=== PATIENT | female | born 1950 | race Two or more races ===

== ENCOUNTER → 2024-12-04 | Outpatient (CLI) | payer MEDICARE, SELFPAY ==
[2024-12-04 08:40] LABS: Basophils # (Auto) 0.1 Thou/mm3 (0.0-0.2); Basophils % (Auto) 1 % (0-2.5); Eosinophils # (Auto) 0.3 Thou/mm3 (0.0-0.5); Eosinophils % (Auto) 6 % (0-10); Hematocrit 32.4 % (36.0-46.0); Hemoglobin 10.6 g/dL (12.0-16.0); Immature Granulocytes % (Auto) 1 % (0-0); Immature Granulocytes Auto 0.04 Thou/mm3 (0.00-0.00); Lymphocytes # (Auto) 0.7 Thou/mm3 (1.0-4.8); Lymphocytes % (Auto) 13 % (10-50); Mean Corpuscular HGB Conc 32.7 g/dl (31.0-37.0); Mean Corpuscular Volume 80 fL (80-100); Monocytes # (Auto) 0.8 Thou/mm3 (0.0-0.8); Monocytes % (Auto) 16 % (0-12); Neutrophils # (Auto) 3.3 Thou/mm3 (1.8-7.7); Neutrophils % (Auto) 64 % (37-80); Nucleated Red Blood Cell % 0 /100 WBC (0); RDW Standard Deviation 43.4 fL (36.4-46.3); Red Blood Count 4.07 Miln/mm3 (4.00-5.20); White Blood Count 5.2 Thou/mm3 (3.6-11.0)
[2024-12-04 08:57] LABS: Alanine Aminotransferase 10 U/L (10-49); Albumin, Serum 3.7 gm/dL (3.4-4.8); Albumin/Globulin Ratio 1.1 (1.2-2.2); Alkaline Phosphatase 100 U/L (46-116); Anion Gap 7 (7-16); Aspartate Amino Transferase 23 U/L (0-34); BUN/Creatinine Ratio 20 Ratio (12-20); Bilirubin,Total 0.5 mg/dL (0.3-1.2); Blood Urea Nitrogen 16 mg/dL (9-23); Calcium 8.6 mg/dL (8.3-10.6); Calcium (Corrected) 8.8 mg/dL (8.5-10.1); Carbon Dioxide 27.6 mMol/L (20.0-31.0); Cardiac Risk Estimate 3.4 RATIO (3.7-5.6); Chloride 106 mMol/L (98-107); Cholesterol 124 mg/dL (132-200); Creatinine (Component) 0.8 mg/dL (0.6-1.3); Globulin 3.4 gm/dL (2.3-3.5); Glucose 92 mg/dL (74-106); HDL Cholesterol 36 mg/dL (40-60); LDL Cholesterol,Calculated 59 mg/dL (0-130); Osmolality,Calculated 282 (275-295); Potassium 3.6 mMol/L (3.4-5.1); Sodium 141 mMol/L (136-145); Thyroid Stimulating Hormone 6.32 uIU/mL (0.55-4.78); Total Protein 7.1 gm/dL (5.7-8.2); Triglycerides 144 mg/dL (30-150); eGFR > 60 See Note
[2024-12-04 09:04] LABS: Platelet Count 42 Thou/mm3 (140-440)
[2024-12-04 11:44] LABS: Slide Review Platelets confirmed
[2024-12-04 12:59] LABS: Path Review Blood Smear Sent to Pathologist
== END | disposition home or self-care (01) ==
PROVIDERS: PCP Family Medicine; Referring Provider Family Medicine; Visit Provider Family Medicine
DX: G25.81 Restless legs syndrome (principal); E78.5 Hyperlipidemia, unspecified
CPT/HCPCS: 36415; 80053; 80061; 84443; 85025

== ENCOUNTER → 2024-12-24 | Outpatient (CLI) | payer MEDICARE, MEDICAID, SELFPAY ==
--- NOTE | 2024-12-24 08:30 | XR_ITS ---
Examination: Screening digital mammography, bilateral Computer aided detection 3-D breast Tomosynthesis, bilateral Date and time of exam: December 24, 2024 0832 hours Compared to mammograms dating to November 26, 2019 Indication: Screening Technique: Nonmagnified MLO, CC views of the breasts to been obtained, reconstructed from 3-D Tomosynthesis images. R2 computer aided detection program utilized for evaluation of suspicious masses and/or abnormal calcifications. 3-D Tomosynthesis images obtained. Findings: Scattered areas of fibroglandular density. Benign calcifications. 6 mm focal asymmetry retroareolar region right breast Impression: BI-RADS Category 0: Incomplete: Need additional imaging evaluation Recommend follow-up spot tomographic views retroareolar region right breast to assess retroareolar right breast focal asymmetry as well as right breast sonography to complete the workup.
[2024-12-24 09:26] LABS: Basophils # (Auto) 0.1 Thou/mm3 (0.0-0.2); Basophils % (Auto) 1 % (0-2.5); Eosinophils # (Auto) 0.3 Thou/mm3 (0.0-0.5); Eosinophils % (Auto) 6 % (0-10); Hematocrit 33.3 % (36.0-46.0); Hemoglobin 10.8 g/dL (12.0-16.0); Immature Granulocytes % (Auto) 1 % (0-0); Immature Granulocytes Auto 0.03 Thou/mm3 (0.00-0.00); Lymphocytes # (Auto) 0.5 Thou/mm3 (1.0-4.8); Lymphocytes % (Auto) 10 % (10-50); Mean Corpuscular HGB Conc 32.4 g/dl (31.0-37.0); Mean Corpuscular Hemoglobin 26.1 pg (25.0-35.0); Mean Corpuscular Volume 80 fL (80-100); Monocytes # (Auto) 0.8 Thou/mm3 (0.0-0.8); Monocytes % (Auto) 17 % (0-12); Neutrophils # (Auto) 3.1 Thou/mm3 (1.8-7.7); Neutrophils % (Auto) 66 % (37-80); Nucleated Red Blood Cell % 0 /100 WBC (0); RDW Standard Deviation 46.7 fL (36.4-46.3); Red Blood Count 4.14 Miln/mm3 (4.00-5.20); White Blood Count 4.8 Thou/mm3 (3.6-11.0)
[2024-12-24 09:27] LABS: Platelet Count 60 Thou/mm3 (140-440)
[2024-12-24 09:58] LABS: Ferritin 32 ng/mL (7.3-270.7); Iron 32 mcg/dL (50-170); Percent Iron Saturation 10 % (20-55); Total Iron Binding Capacity 301 mcg/dL (250-425); Unsaturated Iron Binding 269 (225-295)
[2024-12-24 10:01] LABS: Vitamin B12 365 pg/mL (211-911)
[2024-12-24 10:13] LABS: Slide Review Platelets confirmed
== END | disposition home or self-care (01) ==
LOC: CDIM 08:05 → COPL 08:44
PROVIDERS: PCP Family Medicine; Referring Provider Family Medicine; Visit Provider Family Medicine
DX: Z12.31 Encounter for screening mammogram for malignant neoplasm of breast (principal); D64.9 Anemia, unspecified
CPT/HCPCS: 36415; 77063; 77067; 82607; 82728; 83540; 83550; 85025

== ENCOUNTER → 2025-01-14 | Outpatient (CLI) | payer MEDICARE, MEDICAID, SELFPAY ==
--- NOTE | 2025-01-14 08:00 | XR_ITS ---
Examination: Breast ultrasound, unilateral, right complete Date and time of exam: January 14, 2025 at 0841 hours INDICATIONS: Mammogram December 24, 2024 6 mm focal asymmetry retroareolar region right breast Technique: Real-time izaguirre scale ultrasonographic imaging performed right breast including all 4 quadrants as well as nipple retroareolar and axillary region. Findings: No cystic or solid mass IMPRESSION: BI-RADS Category 1: Negative study
--- NOTE | 2025-01-14 08:45 | XR_ITS ---
Examination: Diagnostic digital mammography, unilateral, right Computer aided detection 3-D breast Tomosynthesis, unilateral Date and time of exam: January 14, 2025 0849 hours INDICATIONS: Mammogram December 24, 2024 6 mm focal asymmetry retroareolar region right breast Technique: Nonmagnified MLO, CC views of the right breast have been obtained, reconstructed from 3-D Tomosynthesis images. R2 computer aided detection program utilized for evaluation of suspicious masses and/or abnormal calcifications. 3-D Tomosynthesis images obtained. Findings: Scattered areas of fibroglandular density No suspicious masses confirmed on the spot compression views Impression: BI-RADS category 2: Benign findings Return to yearly follow-up mammography
== END | disposition home or self-care (01) ==
PROVIDERS: PCP Family Medicine; Referring Provider Family Medicine; Visit Provider Family Medicine
DX: R92.2 Inconclusive mammogram (principal); R92.321 Mammographic fibroglandular density, right breast
CPT/HCPCS: 76641; 77061; 77065; G0279

== ENCOUNTER → 2025-01-20 | Outpatient (CLI) | payer MEDICARE, SELFPAY ==
[2025-01-20 08:43] LABS: Basophils # (Auto) 0.1 Thou/mm3 (0.0-0.2); Basophils % (Auto) 1 % (0-2.5); Eosinophils # (Auto) 0.4 Thou/mm3 (0.0-0.5); Eosinophils % (Auto) 7 % (0-10); Hematocrit 34.3 % (36.0-46.0); Immature Granulocytes % (Auto) 1 % (0-0); Immature Granulocytes Auto 0.04 Thou/mm3 (0.00-0.00); Lymphocytes # (Auto) 0.5 Thou/mm3 (1.0-4.8); Lymphocytes % (Auto) 10 % (10-50); Mean Corpuscular HGB Conc 32.1 g/dl (31.0-37.0); Mean Corpuscular Hemoglobin 27.1 pg (25.0-35.0); Mean Corpuscular Volume 85 fL (80-100); Monocytes # (Auto) 0.8 Thou/mm3 (0.0-0.8); Monocytes % (Auto) 16 % (0-12); Neutrophils # (Auto) 3.4 Thou/mm3 (1.8-7.7); Neutrophils % (Auto) 65 % (37-80); Nucleated Red Blood Cell % 0 /100 WBC (0); Platelet Count 93 Thou/mm3 (140-440); Red Blood Count 4.06 Miln/mm3 (4.00-5.20); White Blood Count 5.2 Thou/mm3 (3.6-11.0)
[2025-01-20 08:55] LABS: Free T4 (Free Thyroxine) 1.06 ng/dL (0.89-1.76); Thyroid Stimulating Hormone 3.84 uIU/mL (0.55-4.78)
[2025-01-20 09:05] LABS: Ferritin 36 ng/mL (7.3-270.7); Iron 49 mcg/dL (50-170); Percent Iron Saturation 16 % (20-55); Total Iron Binding Capacity 303 mcg/dL (250-425); Unsaturated Iron Binding 254 (225-295)
[2025-01-20 13:53] LABS: OBS Performed By LAB; OBS QC OK? Yes
[2025-01-20 15:06] LABS: OBS Developer Lot # 551749; Occult Blood, Stool Positive (Negative); Occult Blood, Stool #2 Positive (Negative); Occult Blood, Stool #3 Positive (Negative)
== END | disposition home or self-care (01) ==
PROVIDERS: PCP Family Medicine; Referring Provider Family Medicine; Visit Provider Family Medicine
DX: D50.9 Iron deficiency anemia, unspecified (principal); E03.8 Other specified hypothyroidism
CPT/HCPCS: 36415; 82270; 82728; 83540; 83550; 84439; 84443; 85025

== ENCOUNTER 2025-04-09 07:30 | Day surgery (SDC) | payer MEDICARE, SELFPAY ==
[2025-04-08 13:00] VITALS: BMI 23.6
[2025-04-09] VITALS (12 sets, daily range): BP systolic 110–155; BP diastolic 49–67; PULSE 55–67; RESP 13–26; TEMP 36.4–36.6; O2SAT 94–100; BMI 22.8
[2025-04-09] MEDS: BENZOCAINE 20% (Hurricaine) SPRAY 1 DOSE TOP (09:42)
[2025-04-09] MEDS: SODIUM CHLORIDE 0.9% 500 ML 500 ML 20 ML IV (09:42)
[2025-04-09] MEDS: fentaNYL CIT INJ 50 mCg/ML AMP 2ML (ASD USE ONLY) IVP (10:00)
[2025-04-09] MEDS: MIDAZOLAM INJ 1 MG/ML VIAL 2 ML (ASD USE ONLY) 2 MG IVP (10:00)
== END 2025-04-09 11:05 | disposition home or self-care (01) ==
PROVIDERS: PCP Family Medicine; Referring Provider Specialist; Visit Provider Specialist
PROC: 0DBE8ZX Excision of Large Intestine, Via Natural or Artificial Opening Endoscopic, Diagnostic (ICD-10-PCS; CPT 45380; principal; 2025-04-09 09:00)
PROC: (CPT 43239; 2025-04-09 09:00)
DX: K55.20 Angiodysplasia of colon without hemorrhage (principal); K64.1 Second degree hemorrhoids; K57.30 Diverticulosis of large intestine without perforation or abscess without bleeding; R19.5 Other fecal abnormalities; D62 Acute posthemorrhagic anemia
CPT/HCPCS: 45382; A4649; J1200; J2250; J3010; J7999; A9270

== ENCOUNTER → 2025-04-28 | Outpatient (CLI) | payer MEDICARE, SELFPAY ==
[2025-04-28 09:24] LABS: Basophils # (Auto) 0.1 Thou/mm3 (0.0-0.2); Basophils % (Auto) 1 % (0-2.5); Eosinophils # (Auto) 0.3 Thou/mm3 (0.0-0.5); Eosinophils % (Auto) 5 % (0-10); Hematocrit 36.7 % (36.0-46.0); Hemoglobin 12.0 g/dL (12.0-16.0); Immature Granulocytes Auto 0.01 Thou/mm3 (0.00-0.00); Lymphocytes # (Auto) 0.4 Thou/mm3 (1.0-4.8); Lymphocytes % (Auto) 8 % (10-50); Mean Corpuscular HGB Conc 32.7 g/dl (31.0-37.0); Mean Corpuscular Hemoglobin 28.0 pg (25.0-35.0); Mean Corpuscular Volume 86 fL (80-100); Monocytes # (Auto) 0.7 Thou/mm3 (0.0-0.8); Monocytes % (Auto) 14 % (0-12); Neutrophils # (Auto) 3.6 Thou/mm3 (1.8-7.7); Neutrophils % (Auto) 71 % (37-80); Nucleated Red Blood Cell # 0.00 Thou/mm3 (0.00-0.00); Nucleated Red Blood Cell % 0 /100 WBC (0); Platelet Count 99 Thou/mm3 (140-440); RDW Standard Deviation 45.6 fL (36.4-46.3); Red Blood Count 4.28 Miln/mm3 (4.00-5.20); White Blood Count 5.1 Thou/mm3 (3.6-11.0)
[2025-04-28 09:32] LABS: Anion Gap 7 (7-16); BUN/Creatinine Ratio 10 Ratio (12-20); Blood Urea Nitrogen 8 mg/dL (9-23); Calcium 9.2 mg/dL (8.3-10.6); Carbon Dioxide 27.3 mMol/L (20.0-31.0); Chloride 106 mMol/L (98-107); Creatinine (Component) 0.8 mg/dL (0.6-1.3); Glucose 86 mg/dL (74-106); Osmolality,Calculated 276 (275-295); Potassium 4.5 mMol/L (3.4-5.1); Sodium 140 mMol/L (136-145); eGFR > 60 See Note
[2025-04-28 09:41] LABS: Ferritin 46 ng/mL (7.3-270.7); Iron 52 mcg/dL (50-170); Percent Iron Saturation 19 % (20-55); Total Iron Binding Capacity 270 mcg/dL (250-425); Unsaturated Iron Binding 218 (225-295)
== END | disposition home or self-care (01) ==
LOC: COPL 07:55
PROVIDERS: PCP Family Medicine; Referring Provider Family Medicine; Visit Provider Family Medicine
DX: D64.9 Anemia, unspecified (principal)
CPT/HCPCS: 36415; 80048; 82728; 83540; 83550; 85025